=== PATIENT | male | born 1995 | race American Indian/Alaskan Native ===

== ENCOUNTER 2020-11-12 21:17 | Emergency (ER) | payer SELFPAY ==
[2020-11-12 23:33] VITALS: BP 113/65
--- NOTE | 2020-11-13 01:29 | Emergency Department Report ---
ED General Adult HPI - General Chief complaint: Dental/Oral Stated complaint: SWELLING IN MOUTH Time Seen by Provider: 11/13/20 00:51 Source: patient Mode of arrival: Ambulatory Limitations: No Limitations - History of Present Illness Initial comments: 25-year-old [place] male with no reported past medical history reports drinking out of someone's water bottle at the gym about a week ago and shortly after began developing swelling to his right lower gingival region which is continue to worsen. He also thinks he may have experienced some pus drainage positive fever chills or sweats no odynophagia no dysphagia, no rash He also has been having a swelling/mass to his left neck which is relatively painless over the last 4 to 5 months of unknown etiology. Initially thought it was a salivary stones he had on his right side preceding the evolution of that mass but it has yet to go down very painful. Reports no night sweats, no weight loss, no hemoptysis no hematemesis, no abdominal pain. 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 but he reports no lesions - Related Data Previous Rx's Medication Instructions Recorded Last Taken Type Amoxicillin [Amoxicillin TAB] 875 mg PO BID #20 tablet 11/13/20 Unknown Rx Chlorhexidine Mouthwash [Peridex] 15 ml MM BID #1 bottle 11/13/20 Unknown Rx traMADoL [Ultram] 50 mg PO Q6HR PRN #10 tablet 11/13/20 Unknown Rx Allergies Allergy/AdvReac Type Severity Reaction Status Date / Time Sulfa (Sulfonamide Allergy Unknown Verified 11/12/20 23:33 Antibiotics) ED Review of Systems ROS: Stated complaint: SWELLING IN MOUTH Other details as noted in HPI Comment: All other systems reviewed and negative ED Past Medical Hx - Past Medical History Previous Medical History?: No - Surgical History Past Surgical History?: Yes Additional Surgical History: tonsil - Social History Smoking Status: Never Smoker Substance Use Type: None - Medications Home Medications: Home Medications Medication Instructions Recorded Confirmed Last Taken Type Amoxicillin [Amoxicillin TAB] 875 mg PO BID #20 tablet 11/13/20 Unknown Rx Chlorhexidine Mouthwash [Peridex] 15 ml MM BID #1 bottle 11/13/20 Unknown Rx traMADoL [Ultram] 50 mg PO Q6HR PRN #10 tablet 11/13/20 Unknown Rx ED Physical Exam - General Limitations: No Limitations General appearance: alert, in no apparent distress - Head Head exam: Present: atraumatic, normocephalic - Eye Eye exam: Present: normal appearance, PERRL, EOMI Pupils: Present: irregular - ENT ENT exam: Present: mucous membranes moist, other (Tenderness to the right lower molar region swelling to the to the to the gingiva) - Neck Neck exam: Present: normal inspection, tenderness, lymphadenopathy (Left cervical chain region), other - Expanded Neck Exam Expanded 1 - Swollen lymphadenopathy 2.5 cm - Respiratory Respiratory exam: Present: normal lung sounds bilaterally. Absent: respiratory distress - Cardiovascular Cardiovascular Exam: Present: regular rate, normal rhythm. Absent: systolic murmur, diastolic murmur, rubs, gallop - GI/Abdominal GI/Abdominal exam: Present: soft, normal bowel sounds - Rectal Rectal exam: Present: deferred - Extremities Exam Extremities exam: Present: normal inspection - Back Exam Back exam: Present: normal inspection - Neurological Exam Neurological exam: Present: alert, oriented X3 - Psychiatric Psychiatric exam: Present: normal affect, normal mood - Skin Skin exam: Present: warm, dry, intact, normal color. Absent: rash ED Course Vital Signs 11/12/20 23:31 Temperature 98.5 F Pulse Rate 56 L Respiratory 18 Rate Blood Pressure 113/65 O2 Sat by Pulse 100 Oximetry Critical care attestation.: If time is entered above; I have spent that time in minutes in the direct care of this critically ill patient, excluding procedure time. ED Disposition Clinical Impression: Lymphadenopathy of left cervical region, Gingival abscess Disposition: DC- TO HOME OR SELFCARE Is pt being admited?: No Does the pt Need Aspirin: No Condition: Stable Instructions: Lymphadenopathy, Preventive Dental Care, Adult Prescriptions: Amoxicillin [Amoxicillin TAB] 875 mg PO BID #20 tablet Chlorhexidine Mouthwash [Peridex] 15 ml MM BID #1 bottle traMADoL [Ultram] 50 mg PO Q6HR PRN #10 tablet PRN Reason: Pain Referrals: PRIMARY CARE, [Primary Care Provider] - 3-5 Days DELILAH PATRICIO MD [Staff Physician] - 3-5 Days [facility] [Outside] - 3-5 Days
== END 2020-11-13 01:45 | disposition home or self-care (01) ==
LOC: ED 21:17
DX: R59.1 Generalized enlarged lymph nodes (principal); K05.319 Chronic periodontitis, localized, unspecified severity; Z79.899 Other long term (current) drug therapy; Z88.2 Allergy status to sulfonamides
CPT/HCPCS: 99282